=== PATIENT | male | born 1985 | race Caucasian/White ===

== ENCOUNTER → 2017-12-16 | Emergency (ER) | payer OTHER ==
[2017-12-16 00:57] VITALS: BP 132/89; PULSE 100; TEMP 98.4; BMI 18.8
--- NOTE | 2017-12-16 01:02 | PDOC ---
Attending Attestation - Resident Resident Name: Krista Garcias - ED Attending Attestation I have performed the following: I have examined & evaluated the patient, The case was reviewed & discussed with the resident, I agree w/resident's findings & plan, Exceptions are as noted - HPI HPI: 32 yo M history heroin and suboxone abuse presents with elevated blood pressure. As per patient, he went to [facility] seeking detox, they did not have an available bed. They checked his blood pressure and sent him to ED as it was elevated. - Physicial Exam PE: GENERAL: Awake, alert, and fully oriented, in no acute distress HEAD: No signs of trauma EYES: PERRLA, EOMI, sclera anicteric, conjunctiva clear ENT: Auricles normal inspection, hearing grossly normal, nares patent, oropharynx clear without exudates. Moist mucosa NECK: Normal ROM, supple, no lymphadenopathy, JVD, or masses LUNGS: Breath sounds equal, clear to auscultation bilaterally. No wheezes, and no crackles HEART: Regular rate and rhythm, normal S1 and S2, no murmurs, rubs or gallops ABDOMEN: Soft, nontender, normoactive bowel sounds. No guarding, no rebound. No masses EXTREMITIES: Normal range of motion, no edema. No clubbing or cyanosis. No cords, erythema, or tenderness NEUROLOGICAL: Cranial nerves II through XII grossly intact. Normal speech, normal gait SKIN: Warm, Dry, normal turgor, no rashes or lesions noted. - Medical Decision Making Pt is from [place], needs to see social media analyst to help arrange a way to get home. Will monitor him in ED until case mgmt arrives.
--- NOTE | 2017-12-16 02:58 | PDOC ---
History of Present Illness - General Chief Complaint: Alcohol intoxication Stated Complaint: BLOOD PRESSURE PROBLEM Time Seen by Provider: 12/16/17 00:46 - History of Present Illness Initial Comments: 32 year old male with PMH of heroin abuse presenting from [facility] for elevated blood pressure. Patient was at intake form [facility] when they noticed his diastolic pressure was >100 so they were concerned. He otherwise appeared well. Patient appeared very well on presentation and was politely asking for detox. He is currently on suboxone but continues to use heroin. Denies any fevers, chills, nausea, vomiting, diarrhea, constipation, or other symptoms. 12/16/17 02:15 Past History - Past Medical History Allergies/Adverse Reactions: Allergies Allergy/AdvReac Type Severity Reaction Status Date / Time No Known Allergies Allergy Verified 12/15/17 22:44 Home Medications: Ambulatory Orders Insulin Detemir [Levemir Flextouch] 25 unit SQ HS 12/15/17 Asthma: No Cardiac Disorders: No Diabetes: Yes GI Disorders: No HTN: No Seizures: No - Suicide/Smoking/Psychosocial Hx Smoking History: Unknown if ever smoked Information on smoking cessation initiated: No Hx Alcohol Use: Yes Drug/Substance Use Hx: Yes Review of Systems - Review of Systems Constitutional: No: Chills, Diaphoresis, Fever HEENTM: No: Eye Pain, Blurred Vision, Tearing Respiratory: No: Cough, Orthopnea, Shortness of Breath Cardiac (ROS): No: Chest Pain, Edema ABD/GI: No: Constipated, Diarrhea, Nausea, Poor Appetite : No: Burning, Dysuria, Discharge Musculoskeletal: No: Back Pain, Gout, Joint Pain Integumentary: No: Bruising, Change in Color, Lesions Neurological: No: Numbness, Paresthesia, Seizure, Tingling, Tremors, Weakness Psychiatric: No: Anxiety, Depression Hematologic/Lymphatic: No: Anemia, Blood Clots, Easy Bleeding *Physical Exam - Vital Signs Last Vital Signs Temp Pulse Resp BP Pulse Ox 98.4 F 100 H 18 132/89 99 12/16/17 00:30 12/16/17 00:30 12/16/17 00:30 12/16/17 00:30 12/16/17 00:30 - Physical Exam General Appearance: Yes: Nourished, Appropriately Dressed. No: Apparent Distress HEENT: positive: EOMI, SAIMA, Normal ENT Inspection, Normal Voice Neck: positive: Trachea midline, Normal Thyroid, Supple. negative: Tender, Rigid Respiratory/Chest: positive: Lungs Clear, Normal Breath Sounds. negative: Chest Tender, Respiratory Distress, Accessory Muscle Use Cardiovascular: positive: Regular Rhythm, Regular Rate Gastrointestinal/Abdominal: positive: Normal Bowel Sounds, Flat, Soft. negative : Tender Lymphatic: negative: Adenopathy, Tenderness Musculoskeletal: positive: Normal Inspection. negative: Decreased Range of Motion Extremity: positive: Normal Capillary Refill, Normal Inspection, Normal Range of Motion. negative: Tender Integumentary: positive: Normal Color, Dry, Warm Neurologic: positive: engraver signature II-XII NML intact, Fully Oriented, Alert, Normal Mood/ Affect, Normal Response, Motor Strength 5/5 Medical Decision Making - Medical Decision Making 32 year old well appearing heroin abusing male [facility] diastolic pressure to 100. Patient's pressures were well within normal range and he was well appearing. HR was 100 on presentation but decreased by discharge. No signs of withdrawal while with us. I spoke to Gayathri ([facility] INORGANIC CHEMICAL TECHNICIAN) and they will accept him for detox at 8 in the morning. 12/16/17 02:59 Patient eloped. 12/16/17 06:30 *DC/Admit/Observation/Transfer Diagnosis at time of Disposition: Heroin abuse - Discharge Dispostion Disposition: ELOPED Condition at time of disposition: Improved Decision to Admit order: No - Referrals Referrals: [facility] [place] [Provider Group] - Patient Instructions Printed Discharge Instructions: Chemical Dependency (Narcotic) (Alternative Therapy) Additional Instructions: Please stop using heroin. Please stay dug free and fully comply with the [facility]. Please return to the ED if you have any new or worsening symptoms. - Post Discharge Activity
== END | disposition left against medical advice (07) ==
LOC: JER 00:30
DX: I10 Essential (primary) hypertension (principal); E11.9 Type 2 diabetes mellitus without complications; Z79.4 Long term (current) use of insulin; F11.10 Opioid abuse, uncomplicated
CPT/HCPCS: 99282-25